=== PATIENT | female | born 1955 | race Caucasian/White ===

== ENCOUNTER 2017-05-31 09:57 | Outpatient (CLI) | payer BC ==
--- NOTE | 2017-05-31 10:51 | RAD ---
CHEST TWO VIEWS: History: Pneumonia. Comparison: 01-05-12 FINDINGS: Lungs are clear. There is no pneumothorax or effusion. Cardiac silhouette and mediastinal contour wit hin normal limits. IMPRESSION: No acute intrathoracic abnormality. POS: [id number]
== END 2017-05-31 09:58 | disposition home or self-care (01) ==
LOC: MADRAD 09:57
PROVIDERS: ATTEND Nurse Practitioner Family
DX: J06.9 Acute upper respiratory infection, unspecified (principal)
CPT/HCPCS: 71046